=== PATIENT | male | born 1955 | race Caucasian/White ===

== ENCOUNTER → 2016-07-12 | Emergency (ER) | payer OTHER, BC ==
[~2016-07-12] VITALS: Ht 162.6 cm; Wt 78.2 kg
[~2016-07-12] MED LIST: HYDR-4246 PO; HYDROCODONE/APAP 5/325 (PrePack) SENT HOME ONE; NO ROUTINE MEDS
[2016-07-12 20:18] VITALS: TEMP 99.1; Ht 162.6 cm; Wt 78.2 kg
--- NOTE | 2016-07-12 20:20 | NUR ---
INJURY CARE FOOT ELEVATED ON PILLOW AND ICE APPLIED R LEG.
--- NOTE | 2016-07-12 20:26 | NUR ---
PROVIDER DR ROMAN IN ROOM W/ PT.
--- NOTE | 2016-07-12 20:51 | ERPDOC ---
Departure Disposition Decision Date: Jul 12, 2016 Disposition Decision Time: 21:29 Disposition: 01 DISCHARGED HOME, SELF-CARE Impression Impression Impression: Primary Impression: Crush injury of right foot Encounter type: initial encounter Qualified Codes: S97.81XA - Crushing injury of right foot, initial encounter Additional Impressions: Contusion Encounter type: initial encounter Contusion area: foot Laterality: right Qualified Codes: S90.31XA - Contusion of right foot, initial encounter Foot sprain Encounter type: initial encounter Laterality: right Qualified Codes: S93.601A - Unspecified sprain of right foot, initial encounter Severity: Moderate Condition: Improved Seen By: Physician only Patient Instructions: Contusion in Adults (ED), Crush Injury (ED), Foot Sprain (ED) Problems/Meds/Labs Reviewed?: Yes Medications reviewed and manag: Yes Additional Instructions: Ibuprofen 600 mg 4 times daily for baseline pain control Clifton 5 mg one tablet every 6 hours as needed for severe pain Wear nonflexible Bunion Boot at home At work wear steel soled steel toed boots Follow up care ordered?: Yes Mental Status: Alert Scripts Hydrocodone/Acetaminophen (Clifton 5-325 Tablet) 5-325 Tablet 1 TAB PO QID Y for PAIN, #30 Prov: ALANA ROMAN MD 07/12/16 HPI General Chief Complaint: Lower Extremity Injury Stated Complaint: RIGHT FOOT PAIN Time Seen by Provider: 20:08 Source: patient Exam Limitations: no limitations HPI Foot/Ankle Initial Comments Patient was a work-related 300 pound piece of metal dropped onto his right foot. Patient had instant pain, ecchymosis, and was sent to the ER for evaluation. Patient is able to bear weight with significant pain, but declined pain medication at this time Occurred At: work Onset: Rapid Duration: 1-3 hrs Severity: moderate Location: right: ankle, foot 1 - Large superficial abrasion with deep ecchymosis, moderate to significant tenderness, minimal swelling, no deformity Method of Injury: direct blow Associated Symptoms: bruising, pain with extension, pain with flexion, pain with standing, swelling, DENIES: numbness, pallor, red streaks, redness, weakness Allergies: Coded Allergies: No Known Allergies (Unverified , 07/12/16) Past History Past Medical History Pt denies signifigant PMH Surgical History General: appendix Social History Smoking Status: Never smoker Does patient use chewing tobac: No Second Hand Exposure: No Substance Use Type: does not use Alcohol Intake: none Record Review Pertinent history updated: Yes Review of Systems Constitutional Constitutional: DENIES: appetite decrease, appetite increase, chills, dizziness , fever, weakness ENMT Ears: DENIES: pain Hearing: DENIES: hearing loss, tinnitus Balance: DENIES: vertigo Mouth/Throat: DENIES: change in swallowing, change in voice, hoarsness, painful swallowing, sore throat Cardiovascular Cardiac: DENIES: chest pain, dyspnea on exertion Rhythm/Rate: DENIES: irregular beat, palpitations, tachycardia Vascular: DENIES: pedal edema Pulmonary Respiratory: DENIES: cough, dyspnea, pleuritic chest pain GI Upper Abdomen: DENIES: dysphagia, heartburn/indigestion, nausea, pain, vomiting Lower Abdomen: DENIES: blood in stool, constipation, diarrhea, pain General: DENIES: burning, dysuria, frequency, pain, urgency Musculoskeletal General: pain, tenderness, DENIES: atrophy of muscles, cramps, gout, joint pain , joint swelling, spasm, weakness Integumentary Skin: DENIES: rash, sores Neurological General: DENIES: headache, numbness, tingling, vertigo, weakness Exam General General Nourishment: well nourished, well developed, appears stated age, no acute distress General Body Habitus: well groomed Vital Signs: RN Vital Signs have been reviewed: Yes, Temperature: 99.1, Source : Oral, Heart Rate: 79, Respiratory Rate: 20, BP: 150/74, Pulse Oximetry: 95 Height (Feet): 5 Height (Inches): 4.00 Fastrak Foot/Ankle Comments Tenderness, superficial abrasion, and ecchymosis as diagrammed on the anterior ankle/dorsal foot Patient is neurovascularly intact, has normal range of motion with pain, no deformity, no crepitus. Neurologic RN Documented GCS Eye Opening: (4)Spontaneous Verbal: (5)Oriented Motor: (6)Obeys Commands Total: Progress Results/Orders Orders Procedure Category Date Status Time Foot Right 3 Views RAD 07/12/16 Taken Ankle Right 3 View RAD 07/12/16 Taken Progress Progress Patient declines pain medication on initial exam Ankle/foot x-rays - negative, no fractures or dislocations are seen Some the patient's pain, he appears to have large bruise to the dorsum of the foot with strain of the plantar fascia. Patient is placed in a bunion boot, instructed to use this anytime is not working, and instructed to get a steel toed steel soled boot to wear for work. ALANA ROMAN MD Jul 12, 2016 20:51
--- NOTE | 2016-07-12 20:58 | NUR ---
XRAY XRAY IN ROOM W/ PT.
--- NOTE | 2016-07-12 21:45 | NUR ---
TAKE HOME PREPACK NORCO 6 EA PACK GIVEN TO PT W/ PT VERBAL UNDERSTANDING OF ADMINSTRATION.
[2016-07-12 21:48] VITALS: BP 146/81; PULSE 75; RESP 18; O2SAT 95
--- NOTE | 2016-07-12 21:48 | NUR ---
DISCHARGE PT GIVEN DISCHARGE INSTRUCTION W/ FOLLOWUP AND RX X1 NORCO . PT VERBALIZED UNDERSTANDING AND SIGNED FORM. PT LEFT ER ALERT AMBULATORY W/ LIMP, VS CHARTED AND PAIN RELIEVED 07/25 AND NO ACUTE DISTRESS.
--- NOTE | 2016-07-13 07:59 | DI ---
Indication: ITS.REASON: CRUSH INJURY TO RIGHT ANTERIOR ANKLE/FOOT PROCEDURE: FOOT RIGHT 3 VIEWS: Encounter: Initial Comparison: None Findings: There is no acute fracture, dislocation or malalignment identified. Impression: No acute osseous abnormality. .
--- NOTE | 2016-07-13 07:59 | DI ---
Indication: ITS.REASON: CRUSH INJURY TO RIGHT ANTERIOR ANKLE/FOOT PROCEDURE: ANKLE RIGHT 3 VIEW: Encounter: Initial Comparison: None Findings: There is no acute fracture, dislocation or malalignment identified. Impression: No acute osseous abnormality. .
== END | disposition home or self-care (01) ==
LOC: ED 20:06
DX: S97.81XA Crushing injury of right foot, initial encounter (principal); S90.31XA Contusion of right foot, initial encounter; S93.601A Unspecified sprain of right foot, initial encounter; W20.8XXA Other cause of strike by thrown, projected or falling object, initial encounter; Y93.9 Activity, unspecified; Y92.9 Unspecified place or not applicable; Y99.0 Civilian activity done for income or pay